=== PATIENT | female | born 1980 | race Caucasian/White ===

== ENCOUNTER 2019-09-17 12:13 | Outpatient (CLI) | payer BC ==
--- NOTE | 2019-09-17 12:54 | RAD ---
XR Ribs Lt>=2 View W/PA CXR History: Costochondritis. Left-sided rib pain. Comparison: None. Findings: The lungs are clear. No pneumothorax. No effusion. Right upper quadrant surgical clips. Cardiac silhouette and mediastinal contours are within normal limits. No displaced rib fracture. Mild levoscoliosis lumbar spine. Impression: No acute displaced rib fracture or sequelae of acute intrathoracic abnormality.
== END 2019-09-17 12:14 | disposition home or self-care (01) ==
LOC: SCSRAD 12:13
PROVIDERS: ATTEND Family Medicine
DX: R07.89 Other chest pain (principal)